=== PATIENT | female | born 1990 | race Caucasian/White ===

== ENCOUNTER 2019-05-09 16:06 | Emergency (ER) | payer BC ==
[~2019-05-09] VITALS: Ht 152.4 cm; Wt 51.8 kg
[2019-05-09 16:15] VITALS: BP 132/80
--- NOTE | 2019-05-09 16:30 | NUR ---
PROVIDER SAW PT IN TRIAGE REGARDING ARM NUMBNESS, PT CHANGED TO LEVEL 4
== END 2019-05-09 17:06 | disposition home or self-care (01) ==
LOC: ER 16:07
DX: T85.9XXA Unspecified complication of internal prosthetic device, implant and graft, initial encounter (principal); R20.2 Paresthesia of skin; Y84.8 Other medical procedures as the cause of abnormal reaction of the patient, or of later complication, without mention of misadventure at the time of the procedure; Y92.89 Other specified places as the place of occurrence of the external cause
CPT/HCPCS: 99281